=== PATIENT | male | born 1970 | race Caucasian/White ===

== ENCOUNTER 2022-11-02 16:27 | Inpatient (IN) ==
[2022-11-02] MEDS ORDERED: NALOXONE HCL 0.4 MG/1 ML VIAL/CARP IV STA (16:34)
--- NOTE | 2022-11-02 16:36 | Emergency Department Note ---
Impression & Plan Altered mental state ADMIT ED Provider Note HPI: The patient is a 52-year-old male who presents the emergency department via EMS for altered mental status. 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 Patient appeared intoxicated on their assessment and he was noted to have 2 cans of alcoholic beverages in the car with him. Patient failed his field sobriety test and became increasingly less responsive during the testing according to police at the bedside. EMS was therefore contacted and the patient was brought to the ED. Patient was given intranasal Narcan in the field without much response. On arrival here to the ED the patient is alert to painful stimuli with verbal response, he is maintaining oxygen saturation at 93% on 2 L nasal cannula oxygen. ROS: - Per HPI *Outpatient medications and allergy history reviewed. *Pertinent external medical records reviewed. 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 He seemed to be intoxicated in the field, became increasingly lethargic and EMS was contacted. On arrival here to the ED the patient does smell of alcohol, he is responsive to painful stimuli. He is coughed several times, he is stable on nasal cannula oxygen, he did have a desaturation off nasal cannula oxygen which I suspect was secondary to apnea and therefore was placed again. He has otherwise been protecting his airway appropriately without issue therefore patient was not intubated on arrival. He is otherwise hemodynamically stable. Patient did not respond to Narcan in the field, he was given 1 dose IV here in the ED and did not have much response. Per police report patient was noted to have multiple alcoholic beverages in his vehicle and also several bottles of prescription medications including reportedly Klonopin and Ativan. I suspect this might also be playing a role in his lethargy and overall altered mental state. CT imaging of the head was obtained that showed evidence of possible old lacunar infarct but no evidence of any intracranial bleeding or other abnormality that would cause his symptoms. Have low concern that this possible lacunar infarct would cause his altered mental state to this degree. Alcohol level is elevated at 158. Suspect given his mild elevation that likely there are other substances on board causing his altered mental status. I suspect at this time patient will require admission for observation and to metabolize alcohol and other substances to reassess his mentation. I did discuss the case with the on-call [facility] hospitalist service, Dr. Carney, and patient was placed for admission in stable condition for further care. In regards to CT imaging finding, I feel at this time the patient is stable for inpatient MRI to determine acuity of possible lacunar infarct but I do not think this is the source of his altered mentation. Critical care time: 35-minutes -Stabilization of hypoxia with oxygen saturations less than 90% on room air requiring supplemental oxygen for correction, time spent at the bedside management of altered mental status, discussion with other healthcare providers and arrangement of admission Consultants: Hospitalist service, [facility] Diagnosis: 1. Altered mental status, acute 2. Alcohol intoxication, acute 3. Hypoxia, acute 4. Low-attenuation focus on CT imaging of the head, nonspecific Disposition: Admission Mark Matthew DO Emergency Medicine Past Med/Surg History Medical History Depression Family history unobtainable HTN (hypertension) Mood disorder Pain Surgical History Surgical history unknown Family History Other Family history unobtainable Social History Smoking Status: Unknown if ever smoked Feels Safe at Home: Yes Allergies Allergies Allergy/AdvReac Type Severity Reaction Status Date / Time Unable to Assess Allergy Unverified 11/02/22 17:07 Home Meds Home Medications Medication Instructions Recorded Confirmed acamprosate 333 mg tablet,delayed 666 mg PO TID 11/02/22 11/02/22 release amlodipine 10 mg tablet 10 mg PO DAILY 11/02/22 11/02/22 bupropion HCl 150 mg 24 hr tablet, 150 mg PO QAM 11/02/22 11/02/22 extended release carvedilol 25 mg tablet 25 mg PO BID 11/02/22 11/02/22 clonidine HCl 0.1 mg tablet 0.1 mg PO TID PRN BP > 140/90 11/02/22 11/02/22 duloxetine 30 mg capsule,delayed 30 mg PO DAILY 11/02/22 11/02/22 release duloxetine 60 mg capsule,delayed 60 mg PO DAILY 11/02/22 11/02/22 release gabapentin 400 mg capsule 400 mg PO TID 11/02/22 11/02/22 hydrochlorothiazide 25 mg tablet 25 mg PO DAILY 11/02/22 11/02/22 naltrexone 50 mg tablet 50 mg PO DAILY PRN breakthrough 11/02/22 11/02/22 craving nicotine 14 mg/24 hr daily 1 patch transdermal DAILY 11/02/22 11/02/22 transdermal patch pantoprazole 40 mg tablet,delayed 40 mg PO QAM 11/02/22 11/02/22 release quetiapine 100 mg tablet 100 mg PO TID PRN as directed 11/02/22 11/02/22 tramadol 50 mg tablet 50 mg PO Q8H PRN Pain 11/02/22 11/02/22 Results & Data (ED) Vital Signs Vital Signs - 24 hr 11/02/22 16:33 11/02/22 16:33 11/02/22 16:45 Temperature 36.7 C Temperature Source Oral Pulse Rate 83 88 78 Pulse Rate [Finger] Pulse Rate from SpO2 Sensor 89 78 Pulse Rhythm [Finger] Pulse Strength [Finger] Respiratory Rate 27 H 17 15 Respiratory Effort / Characteristics Non-Labored Respiratory Depth Normal Respiratory Pattern Regular Blood Pressure 142/109 H Blood Pressure [Right Arm] Blood Pressure Mean 120 Blood Pressure Mean [Right Arm] Blood Pressure Position Lying Blood Pressure Position [Right Arm] Pulse Oximetry 92 92 94 Oxygen Delivery Method Room Air Oxygen Flow Rate Sepsis New/Unexplained Change in Mental Status N/A Sepsis Action Taken by Nursing No Action Required Oxygen Flow Rate - Titration Pulse Oximetry Post Tiitration 11/02/22 16:58 11/02/22 16:58 11/02/22 17:08 Temperature Temperature Source Pulse Rate 79 79 Pulse Rate [Finger] Pulse Rate from SpO2 Sensor 80 79 Pulse Rhythm [Finger] Pulse Strength [Finger] Respiratory Rate 17 33 H Respiratory Effort / Characteristics Respiratory Depth Respiratory Pattern Blood Pressure 152/105 H Blood Pressure [Right Arm] Blood Pressure Mean 120 Blood Pressure Mean [Right Arm] Blood Pressure Position Blood Pressure Position [Right Arm] Pulse Oximetry 97 99 Oxygen Delivery Method Oxygen Flow Rate Sepsis New/Unexplained Change in Mental Status Sepsis Action Taken by Nursing Oxygen Flow Rate - Titration Pulse Oximetry Post Tiitration 11/02/22 17:11 11/02/22 17:11 11/02/22 17:15 Temperature Temperature Source Pulse Rate 78 Pulse Rate [Finger] Pulse Rate from SpO2 Sensor 78 Pulse Rhythm [Finger] Pulse Strength [Finger] Respiratory Rate 19 Respiratory Effort / Characteristics Respiratory Depth Respiratory Pattern Blood Pressure 146/111 H 156/109 H Blood Pressure [Right Arm] Blood Pressure Mean 122 124 Blood Pressure Mean [Right Arm] Blood Pressure Position Blood Pressure Position [Right Arm] Pulse Oximetry 96 Oxygen Delivery Method Oxygen Flow Rate Sepsis New/Unexplained Change in Mental Status Sepsis Action Taken by Nursing Oxygen Flow Rate - Titration Pulse Oximetry Post Tiitration 11/02/22 17:15 11/02/22 18:19 11/02/22 17:30 Temperature Temperature Source Pulse Rate 78 Pulse Rate [Finger] Pulse Rate from SpO2 Sensor 78 Pulse Rhythm [Finger] Pulse Strength [Finger] Respiratory Rate 14 Respiratory Effort / Characteristics Respiratory Depth Respiratory Pattern Blood Pressure 146/114 H Blood Pressure [Right Arm] Blood Pressure Mean 124 Blood Pressure Mean [Right Arm] Blood Pressure Position Blood Pressure Position [Right Arm] Pulse Oximetry 94 78 L Oxygen Delivery Method Room Air Nasal Cannula Oxygen Flow Rate 0 Sepsis New/Unexplained Change in Mental Status Sepsis Action Taken by Nursing Oxygen Flow Rate - Titration 4 Pulse Oximetry Post Tiitration 96 11/02/22 17:30 11/02/22 17:45 11/02/22 17:45 Temperature Temperature Source Pulse Rate 81 77 Pulse Rate [Finger] Pulse Rate from SpO2 Sensor 81 77 Pulse Rhythm [Finger] Pulse Strength [Finger] Respiratory Rate 14 24 Respiratory Effort / Characteristics Respiratory Depth Respiratory Pattern Blood Pressure 129/101 H Blood Pressure [Right Arm] Blood Pressure Mean 110 Blood Pressure Mean [Right Arm] Blood Pressure Position Blood Pressure Position [Right Arm] Pulse Oximetry 92 91 Oxygen Delivery Method Room Air Room Air Oxygen Flow Rate Sepsis New/Unexplained Change in Mental Status Sepsis Action Taken by Nursing Oxygen Flow Rate - Titration Pulse Oximetry Post Tiitration 11/02/22 18:00 11/02/22 18:00 11/02/22 18:15 Temperature Temperature Source Pulse Rate 78 Pulse Rate [Finger] Pulse Rate from SpO2 Sensor 78 Pulse Rhythm [Finger] Pulse Strength [Finger] Respiratory Rate 13 Respiratory Effort / Characteristics Respiratory Depth Respiratory Pattern Blood Pressure 121/93 116/88 Blood Pressure [Right Arm] Blood Pressure Mean 102 97 Blood Pressure Mean [Right Arm] Blood Pressure Position Blood Pressure Position [Right Arm] Pulse Oximetry 91 Oxygen Delivery Method Room Air Oxygen Flow Rate Sepsis New/Unexplained Change in Mental Status Sepsis Action Taken by Nursing Oxygen Flow Rate - Titration Pulse Oximetry Post Tiitration 11/02/22 18:15 11/02/22 19:33 11/02/22 18:30 Temperature Temperature Source Pulse Rate 76 77 Pulse Rate [Finger] 71 Pulse Rate from SpO2 Sensor 76 77 Pulse Rhythm [Finger] Regular Pulse Strength [Finger] Normal Respiratory Rate 11 L 18 18 Respiratory Effort / Characteristics Non-Labored Spontaneous Respiratory Depth Normal Respiratory Pattern Blood Pressure 126/98 Blood Pressure [Right Arm] 122/99 Blood Pressure Mean 107 Blood Pressure Mean [Right Arm] 106 Blood Pressure Position Blood Pressure Position [Right Arm] Lying Pulse Oximetry 91 97 98 Oxygen Delivery Method Room Air Nasal Cannula Nasal Cannula Oxygen Flow Rate 23 Sepsis New/Unexplained Change in Mental Status Sepsis Action Taken by Nursing Oxygen Flow Rate - Titration Pulse Oximetry Post Tiitration 11/02/22 18:45 11/02/22 19:00 11/02/22 19:15 Temperature Temperature Source Pulse Rate 78 83 77 Pulse Rate [Finger] Pulse Rate from SpO2 Sensor 77 82 77 Pulse Rhythm [Finger] Pulse Strength [Finger] Respiratory Rate 16 15 18 Respiratory Effort / Characteristics Respiratory Depth Respiratory Pattern Blood Pressure 136/102 H 165/116 H 128/108 H Blood Pressure [Right Arm] Blood Pressure Mean 113 132 114 Blood Pressure Mean [Right Arm] Blood Pressure Position Blood Pressure Position [Right Arm] Pulse Oximetry 98 100 99 Oxygen Delivery Method Nasal Cannula Nasal Cannula Nasal Cannula Oxygen Flow Rate 4 4 Sepsis New/Unexplained Change in Mental Status Sepsis Action Taken by Nursing Oxygen Flow Rate - Titration Pulse Oximetry Post Tiitration 11/02/22 19:30 11/02/22 19:45 Temperature Temperature Source Pulse Rate 75 73 Pulse Rate [Finger] Pulse Rate from SpO2 Sensor 74 73 Pulse Rhythm [Finger] Pulse Strength [Finger] Respiratory Rate 20 23 Respiratory Effort / Characteristics Respiratory Depth Respiratory Pattern Blood Pressure 122/99 114/95 Blood Pressure [Right Arm] Blood Pressure Mean 106 101 Blood Pressure Mean [Right Arm] Blood Pressure Position Blood Pressure Position [Right Arm] Pulse Oximetry 97 97 Oxygen Delivery Method Nasal Cannula Nasal Cannula Oxygen Flow Rate 2 2 Sepsis New/Unexplained Change in Mental Status Sepsis Action Taken by Nursing Oxygen Flow Rate - Titration Pulse Oximetry Post Tiitration Laboratory Data 11/02/22 16:40 11/02/22 16:40 Lab Results 11/02/22 11/02/22 11/02/22 Range/Units 16:40 16:40 16:40 WBC 6.98 (4.8-10.8) K/ul RBC 5.08 (4.70-6.10) M/uL Hgb 14.9 (14.0-18.0) g/dl Hct 43.9 (42.0-52.0) % MCV 86.4 (80.0-100.0) fL MCH 29.3 (25.0-34.0) pg MCHC 33.9 (32.0-36.0) g/dL RDW Std Deviation 44.3 (36.4-46.3) fL RDW Coeff of Matheus 14.0 (11.5-14.5) % Plt Count 235 (130-400) K/uL MPV 8.5 L (9.4-12.4) fL Immature Gran % (Auto) 0.3 % Neut % (Auto) 51.1 % Lymph % (Auto) 33.2 % [place] % (Auto) 8.0 % Eos % (Auto) 6.0 % Baso % (Auto) 1.4 % Neut # (Auto) 3.56 (1.40-6.50) K/uL Lymph # (Auto) 2.32 (1.2-3.4) K/uL [place] # (Auto) 0.56 (0.11-0.59) K/uL Eos # (Auto) 0.42 (0-0.50) K/uL Baso # (Auto) 0.10 (0-0.2) K/uL Immature Gran # (Auto) 0.02 (0.01-0.20) K/uL Sodium 143 (136-145) mmol/L Potassium 3.6 (3.5-5.1) mmol/L Chloride 108 H (98-107) mmol/L Carbon Dioxide 28 (21-32) mmol/L Anion Gap 7 (3-11) BUN 9 (6-23) mg/dl Creatinine 1.12 (0.6-1.4) mg/dl Est Cr Clr Drug Dosing Not Reportable Est GFR ( Amer) 87.7 ml/min Est GFR (Non-Af Amer) 75.7 ml/min BUN/Creatinine Ratio 8.0 L (10-20) Glucose 103 H (70-99(Fasting)) mg/dl Calcium 9.9 (8.5-10.1) mg/dl Total Bilirubin 0.3 (0.2-1.0) mg/dl AST 20 (13-39) U/L ALT 24 (7-52) U/L Alkaline Phosphatase 88 (34-104) U/L Total Protein 7.5 (6.0-8.3) gm/dl Albumin 4.3 (3.4-5.0) gm/dl Globulin 3.2 (2.5-4.0) gm/dl Albumin/Globulin Ratio 1.3 (0.9-2) TSH 1.627 (0.300-4.500) uIu/ml Urine Color Urine Appearance (Clear) Urine pH (4.5-7.5) Ur Specific Steele (1.000-1.030) Urine Protein (Negative) Urine Glucose (UA) (Negative) Urine Ketones (Negative) Urine Blood (Negative) Urine Nitrite (Negative) Urine Bilirubin (Negative) Urine Urobilinogen (Negative) Ur Leukocyte Esterase (Negative) Salicylates (3.0-30) mg/dl Urine Opiates Screen (Neg) Ur Methadone, Qual (Neg) Acetaminophen (10-30) ug/ml Urine Barbiturates (Neg) Ur Phencyclidine (PCP) (Neg) U Amphetamin/Meth Scrn (Neg) MDMA (Ecstasy) Screen (Neg) U Benzodiazepines Scrn (Neg) Ur Cocaine Metabolite (Neg) U Marijuana (THC) Screen (Neg) Ethyl Alcohol mg/dL (<10.0) mg/dl SARS-CoV-2, RNA, NAAT (NEGATIVE) 11/02/22 11/02/22 11/02/22 Range/Units 16:40 16:40 17:18 WBC (4.8-10.8) K/ul RBC (4.70-6.10) M/uL Hgb (14.0-18.0) g/dl Hct (42.0-52.0) % MCV (80.0-100.0) fL MCH (25.0-34.0) pg MCHC (32.0-36.0) g/dL RDW Std Deviation (36.4-46.3) fL RDW Coeff of Matheus (11.5-14.5) % Plt Count (130-400) K/uL MPV (9.4-12.4) fL Immature Gran % (Auto) % Neut % (Auto) % Lymph % (Auto) % [place] % (Auto) % Eos % (Auto) % Baso % (Auto) % Neut # (Auto) (1.40-6.50) K/uL Lymph # (Auto) (1.2-3.4) K/uL [place] # (Auto) (0.11-0.59) K/uL Eos # (Auto) (0-0.50) K/uL Baso # (Auto) (0-0.2) K/uL Immature Gran # (Auto) (0.01-0.20) K/uL Sodium (136-145) mmol/L Potassium (3.5-5.1) mmol/L Chloride (98-107) mmol/L Carbon Dioxide (21-32) mmol/L Anion Gap (3-11) BUN (6-23) mg/dl Creatinine (0.6-1.4) mg/dl Est Cr Clr Drug Dosing Est GFR ( Amer) ml/min Est GFR (Non-Af Amer) ml/min BUN/Creatinine Ratio (10-20) Glucose (70-99(Fasting)) mg/dl Calcium (8.5-10.1) mg/dl Total Bilirubin (0.2-1.0) mg/dl AST (13-39) U/L ALT (7-52) U/L Alkaline Phosphatase (34-104) U/L Total Protein (6.0-8.3) gm/dl Albumin (3.4-5.0) gm/dl Globulin (2.5-4.0) gm/dl Albumin/Globulin Ratio (0.9-2) TSH (0.300-4.500) uIu/ml Urine Color Urine Appearance (Clear) Urine pH (4.5-7.5) Ur Specific Steele (1.000-1.030) Urine Protein (Negative) Urine Glucose (UA) (Negative) Urine Ketones (Negative) Urine Blood (Negative) Urine Nitrite (Negative) Urine Bilirubin (Negative) Urine Urobilinogen (Negative) Ur Leukocyte Esterase (Negative) Salicylates < 3.0 L (3.0-30) mg/dl Urine Opiates Screen (Neg) Ur Methadone, Qual (Neg) Acetaminophen < 3 L (10-30) ug/ml Urine Barbiturates (Neg) Ur Phencyclidine (PCP) (Neg) U Amphetamin/Meth Scrn (Neg) MDMA (Ecstasy) Screen (Neg) U Benzodiazepines Scrn (Neg) Ur Cocaine Metabolite (Neg) U Marijuana (THC) Screen (Neg) Ethyl Alcohol mg/dL 158.6 H (<10.0) mg/dl SARS-CoV-2, RNA, NAAT NEGATIVE (NEGATIVE) 11/02/22 11/02/22 Range/Units 17:23 17:23 WBC (4.8-10.8) K/ul RBC (4.70-6.10) M/uL Hgb (14.0-18.0) g/dl Hct (42.0-52.0) % MCV (80.0-100.0) fL MCH (25.0-34.0) pg MCHC (32.0-36.0) g/dL RDW Std Deviation (36.4-46.3) fL RDW Coeff of Matheus (11.5-14.5) % Plt Count (130-400) K/uL MPV (9.4-12.4) fL Immature Gran % (Auto) % Neut % (Auto) % Lymph % (Auto) % [place] % (Auto) % Eos % (Auto) % Baso % (Auto) % Neut # (Auto) (1.40-6.50) K/uL Lymph # (Auto) (1.2-3.4) K/uL [place] # (Auto) (0.11-0.59) K/uL Eos # (Auto) (0-0.50) K/uL Baso # (Auto) (0-0.2) K/uL Immature Gran # (Auto) (0.01-0.20) K/uL Sodium (136-145) mmol/L Potassium (3.5-5.1) mmol/L Chloride (98-107) mmol/L Carbon Dioxide (21-32) mmol/L Anion Gap (3-11) BUN (6-23) mg/dl Creatinine (0.6-1.4) mg/dl Est Cr Clr Drug Dosing Est GFR ( Amer) ml/min Est GFR (Non-Af Amer) ml/min BUN/Creatinine Ratio (10-20) Glucose (70-99(Fasting)) mg/dl Calcium (8.5-10.1) mg/dl Total Bilirubin (0.2-1.0) mg/dl AST (13-39) U/L ALT (7-52) U/L Alkaline Phosphatase (34-104) U/L Total Protein (6.0-8.3) gm/dl Albumin (3.4-5.0) gm/dl Globulin (2.5-4.0) gm/dl Albumin/Globulin Ratio (0.9-2) TSH (0.300-4.500) uIu/ml Urine Color Yellow Urine Appearance Clear (Clear) Urine pH 7.5 (4.5-7.5) Ur Specific [place] 1.005 (1.000-1.030) Urine Protein Negative (Negative) Urine Glucose (UA) Negative (Negative) Urine Ketones Negative (Negative) Urine Blood Negative (Negative) Urine Nitrite Negative (Negative) Urine Bilirubin Negative (Negative) Urine Urobilinogen Negative (Negative) Ur Leukocyte Esterase Negative (Negative) Salicylates (3.0-30) mg/dl Urine Opiates Screen Neg (Neg) Ur Methadone, Qual Neg (Neg) Acetaminophen (10-30) ug/ml Urine Barbiturates Neg (Neg) Ur Phencyclidine (PCP) Neg (Neg) U Amphetamin/Meth Scrn Neg (Neg) MDMA (Ecstasy) Screen Neg (Neg) U Benzodiazepines Scrn Neg (Neg) Ur Cocaine Metabolite Neg (Neg) U Marijuana (THC) Screen Neg (Neg) Ethyl Alcohol mg/dL (<10.0) mg/dl SARS-CoV-2, RNA, NAAT (NEGATIVE) Administered Medications Discontinued Medications Sodium Chloride (Nss 1000ml) 1,000 mls @ 999 mls/hr IV .[id number] RUY Stop: 11/02/22 17:45 Last Infusion: 11/02/22 18:21 Dose: 0 mls/hr Documented By: Admin: 11/02/22 16:45 Dose: 999 mls/hr Documented By: DANNY Naloxone HCl (Naloxone Hcl 0.4 Mg/1 Ml Vial/Carp) 1 mg IV NOW STA Stop: 11/02/22 16:35 Last Admin: 11/02/22 17:01 Dose: 1 mg Documented By: DANNY Imaging Data Radiologist's Impression: Head CT 11/02/22 16:33 CT SCAN OF THE BRAIN WITHOUT IV CONTRAST CLINICAL HISTORY: Change in mental status. COMPARISON STUDY: No priors. TECHNIQUE: Unenhanced axial CT scan of the brain is performed from the vertex to the skull base. A dose lowering technique was utilized adhering to the principl es of BASIM. CT DOSE: 691.05 mGy.cm FINDINGS: Brain parenchyma: There is a 12 mm low attenuation focus in the left internal capsule seen on image #18. There is age-related involutional change noting mild subcortical and periventricular microangiopathic disease. There is no hemorrhage, mass effect, or evidence of acute territorial ischemia by CT criteria. Jones-white matter differentiation is preserved. No extra-axial fluid collection is seen. Ventricles, sulci, cisterns: Prominent secondary to involutional change. Intracranial vasculature: There is atherosclerotic calcification of the cavernous carotid arteries. Calvarium: Unremarkable. Sinuses and mastoids: There is mild/moderate mucosal thickening within the maxillary antra and the ethmoid sinuses. Mild mucosal thickening is noted in the frontal sinuses. The mastoid air cells are well pneumatized. Orbits: The bony orbits are grossly intact. IMPRESSION: 1 There is no hemorrhage, mass effect, or evidence of acute territorial ischemia by CT criteria. 2. There is a 12 mm low-attenuation focus centered in the left internal capsule. This could represent chronic change versus a subacute lacunar infarct. MRI could be considered for further assessment. ACT 112: Negative or not required by law. Electronically signed by: Ranjit Asif M.D. 11/02/2022 5:10 PM Chest X-Ray 11/02/22 16:34 SUPINE PORTABLE AP CHEST RADIOGRAPH CLINICAL HISTORY: Altered mental status. COMPARISON STUDY: No previous studies for comparison. FINDINGS: Mediastinal widening is likely due to supine technique. Low lung volumes are also likely related to supine technique. Linear left basilar opacity represents atelectasis. No consolidation is present. There is no evidence for pulmonary edema. Cardiac size is within normal limits. No pneumothorax is identified on supine exam. IMPRESSION: 1. No acute cardiopulmonary findings. 2. Mediastinal widening, likely due to supine technique. ACT 112: Negative or not required by law. Electronically signed by: Jimenez Solorzano M.D. 11/02/2022 5:25 PM Discharge Plan Visit Data Chief Complaint: Unresponsive ED Provider: Mark Matthew Discharge Problem: Altered mental state Forms Stand Alone Forms: My [facility] Prescriptions Prescriptions: No Action amlodipine 10 mg Tablet 10 mg PO DAILY bupropion HCl 150 mg Tablet Extended Release 24 Hr 150 mg PO QAM duloxetine 30 mg Capsule,Delayed Release(Dr/Ec) 30 mg PO DAILY duloxetine 60 mg Capsule,Delayed Release(Dr/Ec) 60 mg PO DAILY gabapentin 400 mg Capsule 400 mg PO TID pantoprazole 40 mg Tablet,Delayed Release (Dr/Ec) 40 mg PO QAM hydrochlorothiazide 25 mg Tablet 25 mg PO DAILY tramadol 50 mg Tablet 50 mg PO Q8H PRN (Reason: Pain) carvedilol 25 mg Tablet 25 mg PO BID Rx Instructions: must administer with a meal/food clonidine HCl 0.1 mg Tablet 0.1 mg PO TID PRN (Reason: BP > 140/90) quetiapine 100 mg Tablet 100 mg PO TID PRN (Reason: as directed) acamprosate [Campral] 333 mg Tablet,Delayed Release (Dr/Ec) 666 mg PO TID Rx Instructions: 2 tablet dose naltrexone 50 mg Tablet 50 mg PO DAILY PRN (Reason: breakthrough craving) nicotine 14 mg/24 hr Patch 24 Hour 1 patch TRANSDERMAL DAILY Referrals Referrals: PCP,NO [Primary Care Provider] - : Altered mental state Qualifiers: Altered mental status type: unspecified Qualified Code(s): R41.82 - Altered mental status, unspecified
[2022-11-02] MEDS ORDERED: SODIUM CHLORIDE 0.9% 1000ML 1,000 ML IV SCH (16:45)
--- NOTE | 2022-11-02 17:12 | CT Scan Report ---
CT SCAN OF THE BRAIN WITHOUT IV CONTRAST CLINICAL HISTORY: Change in mental status. COMPARISON STUDY: No priors. TECHNIQUE: Unenhanced axial CT scan of the brain is performed from the vertex to the skull base. A do se lowering technique was utilized adhering to the principles of ALARA. CT DOSE: 691.05 mGy.cm FINDINGS: Brain parenchyma: There is a 12 mm low attenuation focus in the left internal capsule seen on image # 18. There is age-related involutional change noting mild subcortical and periventricular microangiopa thic disease. There is no hemorrhage, mass effect, or evidence of acute territorial ischemia by CT cr iteria. Jones-white matter differentiation is preserved. No extra-axial fluid collection is seen. Ventricles, sulci, cisterns: Prominent secondary to involutional change. Intracranial vasculature: There is atherosclerotic calcification of the cavernous carotid arteries. Calvarium: Unremarkable. Sinuses and mastoids: There is mild/moderate mucosal thickening within the maxillary antra and the et hmoid sinuses. Mild mucosal thickening is noted in the frontal sinuses. The mastoid air cells are wel l pneumatized. Orbits: The bony orbits are grossly intact. IMPRESSION: 1 There is no hemorrhage, mass effect, or evidence of acute territorial ischemia by CT criteria. 2. There is a 12 mm low-attenuation focus centered in the left internal capsule. This could represent chronic change versus a subacute lacunar infarct. MRI could be considered for further assessment. ACT 112: Negative or not required by law. Electronically signed by: Ranjit Asif M.D. 11/02/2022 5:10 PM
[2022-11-02 17:13] LABS: Basophils % (auto) 1.4 %; Eosinophils # (auto) 0.42 K/uL (0-0.50); Hematocrit (blood only) 43.9 % (42.0-52.0); Hemoglobin 14.9 g/dl (14.0-18.0); Immature Granulocytes # (auto) 0.02 K/uL (0.01-0.20); Immature Granulocytes % (auto) 0.3 %; Lymphocytes # (auto) 2.32 K/uL (1.2-3.4); Lymphocytes % (auto) 33.2 %; Mean Corpuscular Hemoglobin 29.3 pg (25.0-34.0); Mean Corpuscular Hgb Conc 33.9 g/dL (32.0-36.0); Mean Corpuscular Volume 86.4 fL (80.0-100.0); Mean Platelet Volume 8.5 fL (9.4-12.4); Monocytes # (auto) 0.56 K/uL (0.11-0.59); Neutrophils # (auto) 3.56 K/uL (1.40-6.50); Neutrophils % (auto) 51.1 %; Platelet Count 235 K/uL (130-400); RDW Standard Deviation 44.3 fL (36.4-46.3); Red Blood Count 5.08 M/uL (4.70-6.10); White Blood Count 6.98 K/ul (4.8-10.8)
[2022-11-02 17:14] LABS: Alanine Aminotransferase 24 U/L (7-52); Albumin Globulin Ratio 1.3 (0.9-2); Albumin Level 4.3 gm/dl (3.4-5.0); Alkaline Phosphatase 88 U/L (34-104); Anion Gap 7 (3-11); Aspartate Aminotransferase 20 U/L (13-39); Bilirubin,Total 0.3 mg/dl (0.2-1.0); Blood Urea Nitrogen 9 mg/dl (6-23); Calcium 9.9 mg/dl (8.5-10.1); Carbon Dioxide 28 mmol/L (21-32); Chloride 108 mmol/L (98-107); Est GFR (African American) 87.7 ml/min; Est GFR (Non-African American) 75.7 ml/min; Globulin 3.2 gm/dl (2.5-4.0); Glucose 103 mg/dl (70-99(Fasting)); Potassium 3.6 mmol/L (3.5-5.1); Sodium 143 mmol/L (136-145); Total Protein 7.5 gm/dl (6.0-8.3)
[2022-11-02 17:16] LABS: Acetaminophen < 3 ug/ml (10-30); Salicylate < 3.0 mg/dl (3.0-30)
--- NOTE | 2022-11-02 17:26 | XRay Report ---
SUPINE PORTABLE AP CHEST RADIOGRAPH CLINICAL HISTORY: Altered mental status. COMPARISON STUDY: No previous studies for comparison. FINDINGS: Mediastinal widening is likely due to supine technique. Low lung volumes are also likely re lated to supine technique. Linear left basilar opacity represents atelectasis. No consolidation is pr esent. There is no evidence for pulmonary edema. Cardiac size is within normal limits. No pneumothora x is identified on supine exam. IMPRESSION: 1. No acute cardiopulmonary findings. 2. Mediastinal widening, likely due to supine technique. ACT 112: Negative or not required by law. Electronically signed by: Jimenez Solorzano M.D. 11/02/2022 5:25 PM
[2022-11-02 17:53] LABS: Appearance Urine Clear (Clear); Bilirubin Urine Negative (Negative); Blood Urine Negative (Negative); Color Urine Yellow; Glucose Urine UA Negative (Negative); Ketones Urine Negative (Negative); Leukocyte Esterase Urine Negative (Negative); Nitrite Urine Negative (Negative); Protein Urine Negative (Negative); Specific Gravity Urine 1.005 (1.000-1.030); Urobilinogen Urine Negative (Negative); pH Urine 7.5 (4.5-7.5)
--- NOTE | 2022-11-02 18:09 | History & Physical Report ---
Date of Service November 02, 2022 Assessment & Plan (1) Intoxication: Plan: Alcohol level present and appears to have take benzodiazepines given the bottle of this in his belongings which doesn't have his name on it. 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 Multiple medications present in his possession which may contribute to polypharmacy and have the potential to cause decreased reflexes and perception while driving including but not limited to seroquel 300mg daily, high dose gabapentin, bupropion, duloxetine and tramadol. Hold these for tonight until he becomes more awake. AWSS scale ordered in case of withdrawal. He notably takes acamprosate which is a ILAN agonist ordered to treat alcoholism, and he also has naltrexone with him to use PRN. Cont supportive care with oxygen and hold all meds, strict NPO for now. Monitor on telemetry. (2) Pain: Plan: Evidence of chronic pain given his medications, however, he is currently o btunded and there is no report of pain. (3) Mood disorder: Plan: Holding quietapine, Duloxetine, bupropion, tramadol and gabapentin at this time. (4) HTN (hypertension): Plan: chronic, controlled. Hold HCTZ, carvedilol. (5) Depression: Plan: plan as above. (6) Alcoholism: Plan: Intoxicated on arrival. UDS is pending. AWSS scale PRN Lovenox Full Code Dispo-pending clinical improvement. He is from [place], [place] and drives a truck. Serious consideration to putting a hold on his driving abilities should be considered/notification to the [facility]. 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 He appeared to be intoxicated and was noted to have alcoholic beverages open in the car with him. He failed his field sobriety test and became increasingly less responsive according to police. EMS was contacted and he was brought to the ER. He was given intranasal Narcan in the field without much response. On arrival to the ER he is alert to painful stimuli with verbal response and is maintaining oxygen saturation of 93% on 2 L nasal cannula. He was found to have bottles of Klonopin and Ativan and other peoples names on his car and he suspected to have taken benzodiazepines in addition to alcohol. Alcohol level is elevated. There are no prior records indicate past medical history, however, there were medication bottles in his car with his name on them. These suggest a history of hypertension, depression/anxiety, possibly some element of chronic pain and mood disorder. Allergies Allergy/AdvReac Type Severity Reaction Status Date / Time Unable to Assess Allergy Unverified 11/02/22 17:07 Home Medications Medication Instructions Recorded Confirmed Type acamprosate 333 mg tablet,delayed 666 mg PO TID 11/02/22 11/02/22 History release amlodipine 10 mg tablet 10 mg PO DAILY 11/02/22 11/02/22 History bupropion HCl 150 mg 24 hr tablet, 150 mg PO QAM 11/02/22 11/02/22 History extended release carvedilol 25 mg tablet 25 mg PO BID 11/02/22 11/02/22 History clonidine HCl 0.1 mg tablet 0.1 mg PO TID PRN BP > 140/90 11/02/22 11/02/22 History duloxetine 30 mg capsule,delayed 30 mg PO DAILY 11/02/22 11/02/22 History release duloxetine 60 mg capsule,delayed 60 mg PO DAILY 11/02/22 11/02/22 History release gabapentin 400 mg capsule 400 mg PO TID 11/02/22 11/02/22 History hydrochlorothiazide 25 mg tablet 25 mg PO DAILY 11/02/22 11/02/22 History naltrexone 50 mg tablet 50 mg PO DAILY PRN breakthrough 11/02/22 11/02/22 History craving nicotine 14 mg/24 hr daily 1 patch transdermal DAILY 11/02/22 11/02/22 History transdermal patch pantoprazole 40 mg tablet,delayed 40 mg PO QAM 11/02/22 11/02/22 History release quetiapine 100 mg tablet 100 mg PO TID PRN as directed 11/02/22 11/02/22 History tramadol 50 mg tablet 50 mg PO Q8H PRN Pain 11/02/22 11/02/22 History Past Med/Surg History Medical History Depression Family history unobtainable HTN (hypertension) Mood disorder Pain Surgical History Surgical history unknown Family History Other Family history unobtainable Social History Smoking Status: Unknown if ever smoked Feels Safe at Home: Yes Review of Systems Review of Systems: The patient is obtunded and unable to provide ROS. Physical Exam Physical Exam: CONSTITUTIONAL: WNWD, vitals as above, obtunded. Awakens to physical and verbal stimulus. When asked questions he tries to answer but falls asleep frequently. He is oriented to name. EYES: PERRL, normal conjunctivae, no scleral icterus ENT: external ear and nose normal NECK: trachea midline RESPIRATORY: clear to auscultation bilaterally, no crackles, rales or wheezes, normal respiratory effort CARDIOVASCULAR: regular rate and rhythm, S1 and 2 heard without murmurs, gallops or rubs, no JVD, no peripheral edema CHEST: inspection of chest was normal GASTROINTESTINAL: soft, nontender, ND, some guarding present -crouch catheter placed. MUSCULOSKELETAL: strength 5/5 throughout, head is normocephalic and atraumatic SKIN: warm and dry NEUROLOGIC: obtunded, some shivering noted intermittently PSYCHIATRIC: obtunded but can awaken to voice and tell me his correct name. Results & Data Results & Data ([facility]) Vital Signs (Past 12 Hours) Vital Signs Temp Pulse Resp BP Pulse Ox O2 Del Method 11/02/22 17:15 78 14 94 11/02/22 17:15 156/109 H 11/02/22 17:11 146/111 H 11/02/22 17:11 78 19 96 11/02/22 17:08 79 33 H 99 11/02/22 16:58 152/105 H 11/02/22 16:58 79 17 97 11/02/22 16:45 78 15 94 11/02/22 16:33 88 17 92 11/02/22 16:33 36.7 C 83 27 H 142/109 H 92 Room Air Laboratory Results Short CBC 11/02/22 Range/Units 16:40 WBC 6.98 (4.8-10.8) K/ul Hgb 14.9 (14.0-18.0) g/dl Hct 43.9 (42.0-52.0) % Plt Count 235 (130-400) K/uL BMP 11/02/22 16:40 Sodium 143 Potassium 3.6 Chloride 108 H Carbon Dioxide 28 BUN 9 Creatinine 1.12 Glucose 103 H Calcium 9.9 Liver Function 11/02/22 Range/Units 16:40 Total Bilirubin 0.3 (0.2-1.0) mg/dl AST 20 (13-39) U/L ALT 24 (7-52) U/L Alkaline Phosphatase 88 (34-104) U/L Albumin 4.3 (3.4-5.0) gm/dl Urine 11/02/22 Range/Units 17:23 Urine Color Yellow Urine Appearance Clear (Clear) Urine pH 7.5 (4.5-7.5) Ur Specific [place] 1.005 (1.000-1.030) Urine Protein Negative (Negative) Urine Glucose (UA) Negative (Negative) Diagnostic Findings Head CT 11/02/22 16:33 CT SCAN OF THE BRAIN WITHOUT IV CONTRAST CLINICAL HISTORY: Change in mental status. COMPARISON STUDY: No priors. TECHNIQUE: Unenhanced axial CT scan of the brain is performed from the vertex to the skull base. A dose lowering technique was utilized adhering to the principles of ALARA. CT DOSE: 691.05 mGy.cm FINDINGS: Brain parenchyma: There is a 12 mm low attenuation focus in the left internal capsule seen on image #18. There is age-related involutional change noting mild subcortical and periventricular microangiopathic disease. There is no hemorrhage, mass effect, or evidence of acute territorial ischemia by CT criteria. Jones-white matter differentiation is preserved. No extra-axial fluid collection is seen. Ventricles, sulci, cisterns: Prominent secondary to involutional change. Intracranial vasculature: There is atherosclerotic calcification of the cavernous carotid arteries. Calvarium: Unremarkable. Sinuses and mastoids: There is mild/moderate mucosal thickening within the maxillary antra and the ethmoid sinuses. Mild mucosal thickening is noted in the frontal sinuses. The mastoid air cells are well pneumatized. Orbits: The bony orbits are grossly intact. IMPRESSION: 1 There is no hemorrhage, mass effect, or evidence of acute territorial ischemia by CT criteria. 2. There is a 12 mm low-attenuation focus centered in the left internal capsule. This could represent chronic change versus a subacute lacunar infarct. MRI could be considered for further assessment. ACT 112: Negative or not required by law. Electronically signed by: Ranjit Asif M.D. 11/02/2022 5:10 PM Chest X-Ray 11/02/22 16:34 SUPINE PORTABLE AP CHEST RADIOGRAPH CLINICAL HISTORY: Altered mental status. COMPARISON STUDY: No previous studies for comparison. FINDINGS: Mediastinal widening is likely due to supine technique. Low lung volumes are also likely related to supine technique. Linear left basilar opacity represents atelectasis. No consolidation is present. There is no evidence for pulmonary edema. Cardiac size is within normal limits. No pneumothorax is identified on supine exam. IMPRESSION: 1. No acute cardiopulmonary findings. 2. Mediastinal widening, likely due to supine technique. ACT 112: Negative or not required by law. Electronically signed by: Jimenez Solorzano M.D. 11/02/2022 5:25 PM Code Status & VTE Plan VTE Prophylaxis Plan VTE Prophylaxis will be ordered: Yes
[2022-11-02 18:41] LABS: Amphetamines+Metham, Urine Neg (Neg); Barbiturates, Urine Neg (Neg); Benzodiazepine, Urine Neg (Neg); Cocaine, Urine Neg (Neg); MDMA (Ecstacy), Urine Neg (Neg); Methadone, Urine Neg (Neg); Opiate, Urine Neg (Neg); Phencyclidine, Urine Neg (Neg)
[2022-11-02] MEDS ORDERED: ACETAMINOPHEN 1,000 MG/100 ML VIAL IV STA (21:05)
[2022-11-02] MEDS ORDERED: LORazepam 2 MG/1 ML VIAL IV PRN (21:14)
[2022-11-02] MEDS ORDERED: MULTI-VITAMIN INFUSION 10 ML, THIAMINE HCL 100 MG, FOLIC ACID 1 MG in SODIUM CHLORIDE 0... IV ONE (21:30)
[2022-11-02] MEDS: LORazepam 2 MG/1 ML VIAL IV PRN (21:38)
[2022-11-02 23:32] LABS: Influenza A virus by PCR Negative (Neg); Influenza B virus by PCR Negative (Neg); RSV by PCR Negative (Neg); SARS CoV2 RNA(COVID-19) Ceph NEGATIVE (Negative)
[2022-11-03] MEDS: SODIUM CHLORIDE 0.45 % 1,000 ML IV SCH ×2 (00:36→10:57)
[2022-11-03 05:17] LABS: BUN Creatinine Ratio 8.1 (10-20); Creatinine Clr Calc Pharmacy 95.5 ml/min; Est GFR (African American) 101.8 ml/min; Est GFR (Non-African American) 87.8 ml/min; Magnesium 1.6 mg/dl (1.7-2.4); Potassium 3.7 mmol/L (3.5-5.1)
[2022-11-03 05:25] LABS: Hematocrit (blood only) 41.7 % (42.0-52.0); Hemoglobin 13.8 g/dl (14.0-18.0); Mean Corpuscular Hemoglobin 29.4 pg (25.0-34.0); Mean Corpuscular Hgb Conc 33.1 g/dL (32.0-36.0); Mean Corpuscular Volume 88.9 fL (80.0-100.0); Mean Platelet Volume 8.7 fL (9.4-12.4); Platelet Count 216 K/uL (130-400); RDW Coefficient of Variation 14.1 % (11.5-14.5); RDW Standard Deviation 45.2 fL (36.4-46.3); Red Blood Count 4.69 M/uL (4.70-6.10); White Blood Count 7.42 K/ul (4.8-10.8)
--- NOTE | 2022-11-03 08:11 | Electrocardiogram Report ---
Test Reason : Blood Pressure : / mmHG Vent. Rate : 084 BPM Atrial Rate : 084 BPM P-R Int : 176 ms QRS Dur : 110 ms QT Int : 370 ms P-R-T Axes : 031 011 047 degrees QTc Int : 437 ms Normal sinus rhythm Normal ECG No previous ECGs available Confirmed by Ward Villalba ([id number]) on 11/03/2022 8:11:14 AM Referred By: REFERRED SELF Confirmed By:Ward Villalba
[2022-11-03] MEDS ORDERED: MAGNESIUM SULFATE / D5W 1 GM/100 ML BAG IV ONE (08:18)
[2022-11-03] MEDS: THIAMINE HCL 100 MG in SYRINGE 9 ML IV SCH (09:21)
[2022-11-03] MEDS: FOLIC ACID 1 MG in SYRINGE 9.8 ML IV SCH (09:21)
--- NOTE | 2022-11-03 09:22 | Hospitalist Progress Note ---
Date of Service November 03, 2022 Assessment & Plan (1) Intoxication: Plan: Alcohol level elevated on presentation --measured at 158 Patient reports drinking a Fifth of Vodka a day. Last drink was yesterday Urine Drug Screen negative for tested substances (of note, patient with a bottle of clonazepam in his possession which he reports belongs to his room mate and got "mixed up" with his medications) (2) Pain: Plan: He is prescribed Tramadol for pain. Would discontinue this medication with his history of seizures (3) Mood disorder: Plan: He is prescribed Quetiapine, Duloxetine, bupropion for depression and anxiety. These medications were held on admission due to his depressed mental status. Will resume at home doses and monitor (4) HTN (hypertension): Plan: On HCTZ, carvedilol, amlodipine and clonidine--will resume at home doses with hold parameters (5) Depression: Plan: (6) Alcoholism: Plan: Will monitor on telemetry on withdrawal protocol Continue Thiamine and Folate supplementation Once he is medically stable, he will be discharged to state police custody. Plan DVT ppx-- SQ lovenox Admission and Anticipated Discharge Date Admission Date: November 02, 2022 Subjective Patient seen and examined in ER He was brought in by [employer] Police yesterday for erratic driving and upon arrival to the Emergency Room, he was lethargic. Currently he is awake, complains of feeling nauseous. Reports he is beginning to feel early alcohol withdrawal symptoms. Review of his medical history--he reports having a history of high blood pressu re, neuropathy and sciatica for which he is prescribed Tramadol, Seizures (he is uncertain if it is a primary seizure disorder or related to his alcohol withdrawal), depression and anxiety. With regards to his alcohol history--he drinks a fifth of vodka a day, last drink was yesterday and he has a history of alcohol withdrawals. Physical Exam Physical Exam: Laying in bed, room is darkened, patient is awake and answers questions appropriately, appears disheveled Respiratory: Breathing comfortably on room air, no wheezing/rhonchi/rales Cardiovascular: Regular rate and rhythm, no murmurs/rubs/gallops Gastrointestinal (Abdomen): soft, non tender Musculoskeletal: No edema Neurologic: awake, alert, spontaneously moving extremities, answering questions appropriately Results & Data Results & Data ([facility]) Vital Signs (Past 12 Hours) Vital Signs Pulse Pulse Pulse Resp BP BP Pulse Ox 11/03/22 08:23 69 18 151/111 H 95 11/03/22 06:00 74 17 96 11/03/22 06:00 143/109 H 11/03/22 05:45 74 18 95 11/03/22 05:30 73 10 L 96 11/03/22 05:15 76 16 95 11/03/22 05:00 88 11 L 97 11/03/22 05:00 153/101 H 11/03/22 04:45 79 14 96 11/03/22 04:30 77 25 H 95 11/03/22 04:15 78 6 L 95 11/03/22 04:00 83 8 L 94 11/03/22 04:00 150/105 H 11/03/22 03:45 80 17 94 11/03/22 03:33 81 17 95 11/03/22 03:33 165/115 H 11/03/22 03:30 83 14 97 11/03/22 03:24 85 17 97 11/03/22 03:24 145/113 H 11/03/22 03:15 82 18 97 11/03/22 03:00 77 10 L 96 11/03/22 02:45 79 18 96 11/03/22 02:30 75 12 95 11/03/22 02:15 74 12 96 11/03/22 02:00 74 11 L 96 11/03/22 01:45 77 10 L 95 11/03/22 01:30 75 20 96 11/03/22 01:15 75 13 96 11/03/22 01:00 75 13 92 11/03/22 00:45 77 12 92 11/03/22 00:30 77 10 L 92 11/03/22 00:15 79 15 91 11/03/22 00:00 77 12 91 11/02/22 23:45 80 15 92 11/02/22 23:30 76 19 96 11/02/22 23:15 81 15 95 11/02/22 23:00 77 12 95 11/02/22 22:45 76 12 96 11/02/22 22:30 77 10 L 96 11/02/22 22:15 78 11 L 96 11/02/22 22:02 73 11 L 97 11/02/22 22:02 132/98 11/02/22 22:00 74 12 96 11/02/22 21:45 76 15 98 11/02/22 21:45 145/109 H 11/02/22 21:30 76 13 97 11/02/22 21:30 164/119 H 11/03/22 06:00 78 18 143/109 H 96 11/03/22 03:35 81 18 165/115 H 95 11/03/22 00:00 11/02/22 23:00 80 16 132/98 94 11/02/22 22:02 78 18 132/98 97 11/02/22 21:31 75 15 96 Pulse Ox O2 Del Method O2 Del Method O2 Flow Rate O2 Flow Rate 11/03/22 08:23 Room Air 11/03/22 06:00 11/03/22 06:00 11/03/22 05:45 11/03/22 05:30 11/03/22 05:15 11/03/22 05:00 11/03/22 05:00 11/03/22 04:45 11/03/22 04:30 11/03/22 04:15 11/03/22 04:00 11/03/22 04:00 11/03/22 03:45 11/03/22 03:33 11/03/22 03:33 11/03/22 03:30 11/03/22 03:24 11/03/22 03:24 11/03/22 03:15 11/03/22 03:00 11/03/22 02:45 11/03/22 02:30 11/03/22 02:15 11/03/22 02:00 11/03/22 01:45 11/03/22 01:30 11/03/22 01:15 11/03/22 01:00 11/03/22 00:45 11/03/22 00:30 11/03/22 00:15 11/03/22 00:00 11/02/22 23:45 11/02/22 23:30 11/02/22 23:15 11/02/22 23:00 11/02/22 22:45 11/02/22 22:30 11/02/22 22:15 11/02/22 22:02 11/02/22 22:02 11/02/22 22:00 11/02/22 21:45 11/02/22 21:45 11/02/22 21:30 11/02/22 21:30 11/03/22 06:00 Nasal Cannula 1 11/03/22 03:35 Nasal Cannula 1 11/03/22 00:00 94 Nasal Cannula 1 11/02/22 23:00 Nasal Cannula 1 11/02/22 22:02 Nasal Cannula 1 11/02/22 21:31 Nasal Cannula 2
[2022-11-03] MEDS ORDERED: NON-FORMULARY MEDICATION (Nicotine 14 mg/24 hr Patch 24 Hour) TD SCH (09:45)
[2022-11-03] MEDS: ONDANSETRON INJ 2 MG/ML 2 ML VIAL IV PRN ×2 (09:48→19:58)
[2022-11-03] MEDS: buPROPion XL 150 MG TABCR PO SCH (10:40)
[2022-11-03] MEDS: amLODIPine BESYLATE 5 MG TAB PO SCH (10:41)
[2022-11-03] MEDS: carvediloL 25 MG TAB PO SCH ×2 (10:42→19:59)
[2022-11-03] MEDS: DULoxetine HCL 30 MG CAP PO SCH (10:43)
[2022-11-03] MEDS: DULoxetine HCL 60 MG CAP PO SCH (10:43)
[2022-11-03] MEDS: hydroCHLOROthiazide 25 MG TAB PO SCH (10:44)
[2022-11-03] MEDS: PANTOprazole 40 MG TAB PO SCH (10:45)
[2022-11-03] MEDS: NICOTINE 14 MG/24 HR PATCH TD SCH (10:46)
[2022-11-03] MEDS: LORazepam 2 MG/1 ML VIAL IV PRN ×2 (10:58→13:19)
[2022-11-03] MEDS: cloNIDine HCL 0.1 MG TAB PO PRN ×2 (13:19→20:15)
[2022-11-03] MEDS: GABAPENTIN 400 MG CAP PO SCH ×2 (13:21→19:59)
[2022-11-03] MEDS ORDERED: Ativan PO Alcohol Withdrawal--Active Protocol PO PRN (16:47)
[2022-11-03] MEDS ORDERED: LORazepam 1 MG TAB PO PRN ×2 (16:47)
[2022-11-03] MEDS: LORazepam 1 MG TAB PO PRN ×2 (16:57→21:31)
[2022-11-03] MEDS: ACETAMINOPHEN 325 MG TAB PO PRN ×2 (16:57→20:11)
[2022-11-04] MEDS: LORazepam 1 MG TAB PO PRN ×5 (02:08→23:57)
[2022-11-04] MEDS: ACETAMINOPHEN 325 MG TAB PO PRN ×3 (06:11→19:53)
[2022-11-04] MEDS: ONDANSETRON INJ 2 MG/ML 2 ML VIAL IV PRN ×2 (06:12→12:30)
[2022-11-04] MEDS: amLODIPine BESYLATE 5 MG TAB PO SCH (08:19)
[2022-11-04] MEDS: THIAMINE HCL 100 MG in SYRINGE 9 ML IV SCH (08:19)
[2022-11-04] MEDS: carvediloL 25 MG TAB PO SCH ×2 (08:19→19:56)
[2022-11-04] MEDS: GABAPENTIN 400 MG CAP PO SCH ×3 (08:19→19:54)
[2022-11-04] MEDS: DULoxetine HCL 60 MG CAP PO SCH (08:19)
[2022-11-04] MEDS: buPROPion XL 150 MG TABCR PO SCH (08:19)
[2022-11-04] MEDS: FOLIC ACID 1 MG in SYRINGE 9.8 ML IV SCH (08:19)
[2022-11-04] MEDS: DULoxetine HCL 30 MG CAP PO SCH (08:19)
[2022-11-04] MEDS: hydroCHLOROthiazide 25 MG TAB PO SCH (08:19)
[2022-11-04] MEDS: PANTOprazole 40 MG TAB PO SCH (08:19)
[2022-11-04 08:27] LABS: BUN Creatinine Ratio 7.8 (10-20); Calcium 9.5 mg/dl (8.5-10.1); Creatinine Clr Calc Pharmacy 84.2 ml/min; Est GFR (African American) 84.9 ml/min; Est GFR (Non-African American) 73.3 ml/min; Magnesium 2.1 mg/dl (1.7-2.4); Phosphorus 2.9 mg/dl (2.5-4.9); Potassium 3.6 mmol/L (3.5-5.1)
[2022-11-04] MEDS: cloNIDine HCL 0.1 MG TAB PO PRN ×3 (08:29→19:53)
--- NOTE | 2022-11-04 08:31 | Electrocardiogram Report ---
Test Reason : Blood Pressure : / mmHG Vent. Rate : 068 BPM Atrial Rate : 068 BPM P-R Int : 176 ms QRS Dur : 110 ms QT Int : 420 ms P-R-T Axes : 031 -07 042 degrees QTc Int : 446 ms Normal sinus rhythm Normal ECG When compared with ECG of 02-NOV-2022 16:38, No significant change was found Confirmed by Ward Villalba ([id number]) on 11/04/2022 8:31:24 AM Referred By: REFERRED SELF Confirmed By:Ward Villalba
[2022-11-04] MEDS: NICOTINE 14 MG/24 HR PATCH TD SCH (08:57)
[2022-11-04] MEDS: POLYETHYLENE (MIRALAX) 17 GM PACK PO PRN (12:35)
--- NOTE | 2022-11-04 15:42 | Hospitalist Progress Note ---
Date of Service November 04, 2022 Assessment & Plan (1) Alcoholism: (2) Intoxication: Plan: Alcohol level elevated on presentation --measured at 158 Patient reports drinking a Fifth of Vodka a day. Last drink was on Wednesday Urine Drug Screen negative for tested substances (of note, patient with a bottle of clonazepam in his possession which he reports belongs to his room mate and got "mixed up" with his medications) Continue Ativan, Librium for alcohol withdrawal protocol Continue folic acid and thiamine Monitor closely for any sign of alcohol DT Once he is medically stable, he will be discharged to state police custody. Counseling on alcohol cessation (3) Altered mental state: Plan: Possible Toxic encephalopathy due to alcohol intoxication and polypharmacy He was pulled over by police for erratic driving. 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 No sign of neuro focal deficit on exam Continue monitor (4) Pain: Plan: He is prescribed Tramadol for pain that was discontinued during this admission due to increase risk of seizures Continue Tylenol prn Will add Lidocaine patch (5) Depression: Plan: (6) Mood disorder: Plan: He is prescribed Quetiapine, Duloxetine, bupropion for depression and anxiety. These medications were held on admission due to his depressed mental status. Continue Duloxetine, Bupropion (7) HTN (hypertension): Plan: Continue HCTZ, carvedilol, amlodipine and clonidine Continue monitor BP Plan DVT ppx-- SQ lovenox Admission and Anticipated Discharge Date Admission Date: November 02, 2022 Subjective Pt was seen and examined for follow up of alcohol intoxication Lying in bed with no acute distress Pt said that he feels very anxious He said that he has history of alcohol withdrawal but never experienced DT Denies any hallucinations, chest pain, palpitation Review of Systems Review of Systems: All systems reviewed & are unremarkable except as noted in Subjective Physical Exam Physical Exam: General- No acute distress Head- atraumatic Eyes- PERRL, EOMI, ENT- oropharynx clear Neck- supple, no JVD Lungs- clear to auscultation Heart- regular rhythm; no murmur Abdomen- normal bowel sounds, soft, nontender Extremities- no calf tenderness Neuro- alert, oriented x 3; PERRL, EOMI; no facial palsy; no dysarthria Skin- warm & dry Results & Data Results & Data ([facility]) Vital Signs (Past 12 Hours) Vital Signs Temp Pulse Pulse Resp BP Pulse Ox O2 Del Method 11/04/22 11:30 36.6 C 74 20 125/81 94 Room Air 11/04/22 08:00 Room Air 11/04/22 08:01 36.8 C 64 20 142/91 H 93 Room Air 11/04/22 08:00 68 (1) Altered mental state Altered mental status type: unspecified Qualified Code(s): R41.82 - Altered mental status, unspecified
[2022-11-04] MEDS: Patient's ALLERGY Info needs ENTERED SCH ×2 (16:41→17:52)
[2022-11-04] MEDS: ENOXAPARIN INJ 40 MG/0.4 ML SYR SQ SCH (20:02)
[2022-11-04] MEDS: MELATONIN 3 MG TAB PO PRN (23:57)
[2022-11-05] MEDS: ACETAMINOPHEN 325 MG TAB PO PRN ×4 (04:09→19:40)
[2022-11-05] MEDS: LORazepam 1 MG TAB PO PRN ×3 (04:09→19:41)
[2022-11-05] MEDS: Patient's ALLERGY Info needs ENTERED SCH ×6 (08:38→09:10)
[2022-11-05] MEDS: DULoxetine HCL 60 MG CAP PO SCH (08:39)
[2022-11-05] MEDS: PANTOprazole 40 MG TAB PO SCH (08:39)
[2022-11-05] MEDS: hydroCHLOROthiazide 25 MG TAB PO SCH (08:39)
[2022-11-05] MEDS: buPROPion XL 150 MG TABCR PO SCH (08:39)
[2022-11-05] MEDS: GABAPENTIN 400 MG CAP PO SCH ×3 (08:39→19:42)
[2022-11-05] MEDS: amLODIPine BESYLATE 5 MG TAB PO SCH (08:39)
[2022-11-05] MEDS: carvediloL 25 MG TAB PO SCH ×2 (08:39→19:42)
[2022-11-05] MEDS: NICOTINE 14 MG/24 HR PATCH TD SCH (08:40)
[2022-11-05] MEDS: DULoxetine HCL 30 MG CAP PO SCH (08:40)
[2022-11-05] MEDS: FOLIC ACID 1 MG in SYRINGE 9.8 ML IV SCH (08:47)
[2022-11-05] MEDS: THIAMINE HCL 100 MG in SYRINGE 9 ML IV SCH (08:47)
[2022-11-05] MEDS: LIDOCAINE 5% 1 PATCH TD SCH (09:34)
[2022-11-05] MEDS: ONDANSETRON INJ 2 MG/ML 2 ML VIAL IV PRN ×2 (14:39→19:40)
--- NOTE | 2022-11-05 14:49 | Hospitalist Progress Note ---
Date of Service November 05, 2022 Assessment & Plan (1) Alcoholism: (2) Intoxication: Plan: Alcohol level elevated on presentation --measured at 158 Patient reports drinking a Fifth of Vodka a day. Last drink was on Wednesday Urine Drug Screen negative for tested substances (of note, patient with a bottle of clonazepam in his possession which he reports belongs to his room mate and got "mixed up" with his medications) Continue Ativan, Librium for alcohol withdrawal protocol Continue folic acid and thiamine Monitor closely for any sign of alcohol DT Once he is medically stable, he will be discharged to state police custody. Counseling on alcohol cessation PT/OT eval Clinically stable (3) Altered mental state: Plan: Possible Toxic encephalopathy due to alcohol intoxication and polypharmacy He was pulled over by police for erratic driving. 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 No sign of neuro focal deficit on exam Continue monitor (4) Pain: Plan: He is prescribed Tramadol for pain that was discontinued during this admission due to increase risk of seizures Continue Tylenol prn Continue Lidocaine patch (5) Depression: Plan: (6) Mood disorder: Plan: He is prescribed Quetiapine, Duloxetine, bupropion for depression and anxiety. These medications were held on admission due to his depressed mental status. Continue Duloxetine, Bupropion (7) HTN (hypertension): Plan: Continue HCTZ, carvedilol, amlodipine and clonidine Continue monitor BP Plan DVT ppx-- SQ lovenox Admission and Anticipated Discharge Date Admission Date: November 02, 2022 Subjective Pt was seen and examined for follow up of alcohol intoxication Lying in bed with no acute distress Pt said that he feels anxious Denies any hallucinations, chest pain, palpitation, dizziness and SOB Review of Systems Review of Systems: All systems reviewed & are unremarkable except as noted in Subjective Physical Exam 2 Physical Exam: General- No acute distress Head- atraumatic Eyes- PERRL, EOMI, ENT- oropharynx clear Neck- supple, no JVD Lungs- clear to auscultation Heart- regular rhythm; no murmur Abdomen- normal bowel sounds, soft, nontender Extremities- no calf tenderness Neuro- alert, oriented x 3; PERRL, EOMI; no facial palsy; no dysarthria Skin- warm & dry Results & Data Results & Data ([facility]) Vital Signs (Past 12 Hours) Vital Signs Temp Pulse Pulse Pulse Resp BP Pulse Ox 11/05/22 14:32 36.9 C 90 18 133/92 91 11/05/22 10:46 37 C 66 18 135/97 91 11/05/22 09:15 60 11/05/22 07:22 36.6 C 59 L 16 106/75 93 11/05/22 03:00 36.6 C 67 18 111/72 92 O2 Del Method 11/05/22 14:32 Room Air 11/05/22 10:46 Room Air 11/05/22 09:15 11/05/22 07:22 Room Air 11/05/22 03:00 Room Air (1) Altered mental state Altered mental status type: unspecified Qualified Code(s): R41.82 - Altered mental status, unspecified
[2022-11-05] MEDS ORDERED: KETOROLAC TROMETHAMINE 15 MG/ML VIAL IV ONE (16:53)
[2022-11-05] MEDS: cloNIDine HCL 0.1 MG TAB PO PRN (19:40)
[2022-11-05] MEDS: ENOXAPARIN INJ 40 MG/0.4 ML SYR SQ SCH (19:41)
[2022-11-06] MEDS: LORazepam 1 MG TAB PO PRN (00:11)
[2022-11-06] MEDS: MELATONIN 3 MG TAB PO PRN (00:11)
[2022-11-06] MEDS: ACETAMINOPHEN 325 MG TAB PO PRN ×2 (05:03→16:04)
[2022-11-06] MEDS: ONDANSETRON INJ 2 MG/ML 2 ML VIAL IV PRN ×2 (05:04→16:04)
[2022-11-06] MEDS: THIAMINE HCL 100 MG in SYRINGE 9 ML IV SCH (08:34)
[2022-11-06] MEDS: GABAPENTIN 400 MG CAP PO SCH ×2 (08:35→13:48)
[2022-11-06] MEDS: amLODIPine BESYLATE 5 MG TAB PO SCH (08:35)
[2022-11-06] MEDS: buPROPion XL 150 MG TABCR PO SCH (08:36)
[2022-11-06] MEDS: hydroCHLOROthiazide 25 MG TAB PO SCH (08:36)
[2022-11-06] MEDS: PANTOprazole 40 MG TAB PO SCH (08:36)
[2022-11-06] MEDS: DULoxetine HCL 30 MG CAP PO SCH (08:36)
[2022-11-06] MEDS: carvediloL 25 MG TAB PO SCH (08:41)
[2022-11-06] MEDS: DULoxetine HCL 60 MG CAP PO SCH (08:42)
[2022-11-06] MEDS: FOLIC ACID 1 MG in SYRINGE 9.8 ML IV SCH (08:42)
[2022-11-06] MEDS: LIDOCAINE 5% 1 PATCH TD SCH (08:46)
[2022-11-06] MEDS: POLYETHYLENE (MIRALAX) 17 GM PACK PO PRN (08:52)
[2022-11-06] MEDS: NICOTINE 14 MG/24 HR PATCH TD SCH (09:54)
--- NOTE | 2022-11-06 10:59 | XRay Report ---
XR knee RT 1 or 2V routine CLINICAL HISTORY: fall/ right knee pain COMPARISON STUDY: None. FINDINGS: No fracture or dislocation within the right knee. Cartilage spaces are maintained for age. There is a small right knee effusion. IMPRESSION: Small right knee effusion. No fractures. ACT 112: Negative or not required by law. Electronically signed by: Dereck Santoyo M.D. 11/06/2022 10:58 AM
[2022-11-06] MEDS ORDERED: KETOROLAC TROMETHAMINE 15 MG/ML VIAL IV ONE (12:45)
--- NOTE | 2022-11-06 16:45 | Discharge Summary ---
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 He appeared to be intoxicated and was noted to have alcoholic beverages open in the car with him. He failed his field sobriety test and became increasingly less responsive according to police. EMS was contacted and he was brought to the ER. He was given intranasal Narcan in the field without much response. On arrival to the ER he is alert to painful stimuli with verbal response and is maintaining oxygen saturation of 93% on 2 L nasal cannula. He was found to have bottles of Klonopin and Ativan and other peoples names on his car and he suspected to have taken benzodiazepines in addition to alcohol. Alcohol level is elevated. There are no prior records indicate past medical history, however, there were medication bottles in his car with his name on them. These suggest a history of hypertension, depression/anxiety, possibly some element of chronic pain and mood disorder. Admission Exam Per Admitting Provider CONSTITUTIONAL: WNWD, vitals as above, obtunded. Awakens to physical and verbal stimulus. When asked questions he tries to answer but falls asleep frequently. He is oriented to name. EYES: PERRL, normal conjunctivae, no scleral icterus ENT: external ear and nose normal NECK: trachea midline RESPIRATORY: clear to auscultation bilaterally, no crackles, rales or wheezes, normal respiratory effort CARDIOVASCULAR: regular rate and rhythm, S1 and 2 heard without murmurs, gallops or rubs, no JVD, no peripheral edema CHEST: inspection of chest was normal GASTROINTESTINAL: soft, nontender, ND, some guarding present -crouch catheter placed. MUSCULOSKELETAL: strength 5/5 throughout, head is normocephalic and atraumatic SKIN: warm and dry NEUROLOGIC: obtunded, some shivering noted intermittently PSYCHIATRIC: obtunded but can awaken to voice and tell me his correct name. Principal Diagnosis Alcoholism: Intoxication: Altered mental state: Pain: Depression: HTN (hypertension): Discharge Exam General- No acute distress Head- atraumatic Eyes- PERRL, EOMI, ENT- oropharynx clear Neck- supple, no JVD Lungs- clear to auscultation Heart- regular rhythm; no murmur Abdomen- normal bowel sounds, soft, nontender Extremities- no calf tenderness Neuro- alert, oriented x 3; PERRL, EOMI; no facial palsy; no dysarthria Skin- warm & dry Discharge Data Allergies Allergy/AdvReac Type Severity Reaction Status Date / Time diphenhydramine Allergy Agitated Verified 11/04/22 16:39 [From Benadryl] Consultations 11/02/22 17:44 ED Decision to Admit Stat Ordered Studies 11/02/22 16:33 CT head/brain wo con Stat Laboratory Results WBC 7.42 K/ul (4.8-10.8) 11/03/22 04:34 RBC 4.69 M/uL (4.70-6.10) L 11/03/22 04:34 Hgb 13.8 g/dl (14.0-18.0) L 11/03/22 04:34 Hct 41.7 % (42.0-52.0) L 11/03/22 04:34 MCV 88.9 fL (80.0-100.0) 11/03/22 04:34 MCH 29.4 pg (25.0-34.0) 11/03/22 04:34 MCHC 33.1 g/dL (32.0-36.0) 11/03/22 04:34 RDW Std Deviation 45.2 fL (36.4-46.3) 11/03/22 04:34 RDW Coeff of Matheus 14.1 % (11.5-14.5) 11/03/22 04:34 Plt Count 216 K/uL (130-400) 11/03/22 04:34 MPV 8.7 fL (9.4-12.4) L 11/03/22 04:34 Immature Gran % (Auto) 0.3 % 11/02/22 16:40 Neut % (Auto) 51.1 % 11/02/22 16:40 Lymph % (Auto) 33.2 % 11/02/22 16:40 [place] % (Auto) 8.0 % 11/02/22 16:40 Eos % (Auto) 6.0 % 11/02/22 16:40 Baso % (Auto) 1.4 % 11/02/22 16:40 Neut # (Auto) 3.56 K/uL (1.40-6.50) 11/02/22 16:40 Lymph # (Auto) 2.32 K/uL (1.2-3.4) 11/02/22 16:40 [place] # (Auto) 0.56 K/uL (0.11-0.59) 11/02/22 16:40 Eos # (Auto) 0.42 K/uL (0-0.50) 11/02/22 16:40 Baso # (Auto) 0.10 K/uL (0-0.2) 11/02/22 16:40 Immature Gran # (Auto) 0.02 K/uL (0.01-0.20) 11/02/22 16:40 Sodium 137 mmol/L (136-145) 11/04/22 07:49 Potassium 3.6 mmol/L (3.5-5.1) 11/04/22 07:49 Chloride 102 mmol/L (98-107) 11/04/22 07:49 Carbon Dioxide 31 mmol/L (21-32) 11/04/22 07:49 Anion Gap 4 (3-11) 11/04/22 07:49 BUN 9 mg/dl (6-23) 11/04/22 07:49 Creatinine 1.15 mg/dl (0.6-1.4) 11/04/22 07:49 Est Cr Clr Drug Dosing 84.2 ml/min 11/04/22 07:49 Est GFR ( Amer) 84.9 ml/min 11/04/22 07:49 Est GFR (Non-Af Amer) 73.3 ml/min 11/04/22 07:49 BUN/Creatinine Ratio 7.8 (10-20) L 11/04/22 07:49 Glucose 94 mg/dl (70-99(Fasting)) 11/04/22 07:49 Calcium 9.5 mg/dl (8.5-10.1) 11/04/22 07:49 Phosphorus 2.9 mg/dl (2.5-4.9) 11/04/22 07:49 Magnesium 2.1 mg/dl (1.7-2.4) 11/04/22 07:49 Total Bilirubin 0.3 mg/dl (0.2-1.0) 11/02/22 16:40 AST 20 U/L (13-39) 11/02/22 16:40 ALT 24 U/L (7-52) 11/02/22 16:40 Alkaline Phosphatase 88 U/L (34-104) 11/02/22 16:40 Total Protein 7.5 gm/dl (6.0-8.3) 11/02/22 16:40 Albumin 4.3 gm/dl (3.4-5.0) 11/02/22 16:40 Globulin 3.2 gm/dl (2.5-4.0) 11/02/22 16:40 Albumin/Globulin Ratio 1.3 (0.9-2) 11/02/22 16:40 TSH 1.627 uIu/ml (0.300-4.500) 11/02/22 16:40 Urine Color Yellow 11/02/22 17:23 Urine Appearance Clear (Clear) 11/02/22 17:23 Urine pH 7.5 (4.5-7.5) 11/02/22 17:23 Ur Specific [place] 1.005 (1.000-1.030) 11/02/22 17:23 Urine Protein Negative (Negative) 11/02/22 17:23 Urine Glucose (UA) Negative (Negative) 11/02/22 17:23 Urine Ketones Negative (Negative) 11/02/22 17:23 Urine Blood Negative (Negative) 11/02/22 17:23 Urine Nitrite Negative (Negative) 11/02/22 17:23 Urine Bilirubin Negative (Negative) 11/02/22 17:23 Urine Urobilinogen Negative (Negative) 11/02/22 17:23 Ur Leukocyte Esterase Negative (Negative) 11/02/22 17:23 Salicylates < 3.0 mg/dl (3.0-30) L 11/02/22 16:40 Urine Opiates Screen Neg (Neg) 11/02/22 17:23 Ur Methadone, Qual Neg (Neg) 11/02/22 17:23 Acetaminophen < 3 ug/ml (10-30) L 11/02/22 16:40 Urine Barbiturates Neg (Neg) 11/02/22 17:23 Ur Phencyclidine (PCP) Neg (Neg) 11/02/22 17:23 U Amphetamin/Meth Scrn Neg (Neg) 11/02/22 17:23 MDMA (Ecstasy) Screen Neg (Neg) 11/02/22 17:23 U Benzodiazepines Scrn Neg (Neg) 11/02/22 17:23 Ur Cocaine Metabolite Neg (Neg) 11/02/22 17:23 U Marijuana (THC) Screen Neg (Neg) 11/02/22 17:23 Ethyl Alcohol mg/dL 158.6 mg/dl (<10.0) H 11/02/22 16:40 SARS-CoV-2 (PCR) NEGATIVE (Negative) 11/03/22 17:00 Influenza Type A (PCR) Negative (Neg) 11/02/22 22:29 Influenza Type B (PCR) Negative (Neg) 11/02/22 22:29 RSV (RT-PCR) Negative (Neg) 11/02/22 22:29 SARS-CoV-2, RNA, NAAT NEGATIVE (NEGATIVE) 11/02/22 17:[address] 11/02/22 16:33 CT SCAN OF THE BRAIN WITHOUT IV CONTRAST CLINICAL HISTORY: Change in mental status. COMPARISON STUDY: No priors. TECHNIQUE: Unenhanced axial CT scan of the brain is performed from the vertex to the skull base. A dose lowering technique was utilized adhering to the principles of ALARA. CT DOSE: 691.05 mGy.cm FINDINGS: Brain parenchyma: There is a 12 mm low attenuation focus in the left internal capsule seen on image #18. There is age-related involutional change noting mild subcortical and periventricular microangiopathic disease. There is no hemorrhage, mass effect, or evidence of acute territorial ischemia by CT criteria. Jones-white matter differentiation is preserved. No extra-axial fluid collection is seen. Ventricles, sulci, cisterns: Prominent secondary to involutional change. Intracranial vasculature: There is atherosclerotic calcification of the cavernous carotid arteries. Calvarium: Unremarkable. Sinuses and mastoids: There is mild/moderate mucosal thickening within the maxillary antra and the ethmoid sinuses. Mild mucosal thickening is noted in the frontal sinuses. The mastoid air cells are well pneumatized. Orbits: The bony orbits are grossly intact. IMPRESSION: 1 There is no hemorrhage, mass effect, or evidence of acute territorial ischemia by CT criteria. 2. There is a 12 mm low-attenuation focus centered in the left internal capsule. This could represent chronic change versus a subacute lacunar infarct. MRI could be considered for further assessment. ACT 112: Negative or not required by law. Electronically signed by: Ranjit Asif M.D. 11/02/2022 5:10 PM Chest X-Ray 11/02/22 16:34 SUPINE PORTABLE AP CHEST RADIOGRAPH CLINICAL HISTORY: Altered mental status. COMPARISON STUDY: No previous studies for comparison. FINDINGS: Mediastinal widening is likely due to supine technique. Low lung volumes are also likely related to supine technique. Linear left basilar opacity represents atelectasis. No consolidation is present. There is no evidence for pulmonary edema. Cardiac size is within normal limits. No pneumothorax is identified on supine exam. IMPRESSION: 1. No acute cardiopulmonary findings. 2. Mediastinal widening, likely due to supine technique. ACT 112: Negative or not required by law. Electronically signed by: Jimenez Solorzano M.D. 11/02/2022 5:25 PM Knee X-Ray 11/06/22 10:24 XR knee RT 1 or 2V routine CLINICAL HISTORY: fall/ right knee pain COMPARISON STUDY: None. FINDINGS: No fracture or dislocation within the right knee. Cartilage spaces are maintained for age. There is a small right knee effusion. IMPRESSION: Small right knee effusion. No fractures. ACT 112: Negative or not required by law. Electronically signed by: Dereck Santoyo M.D. 11/06/2022 10:58 AM Hospital Course (1) Alcoholism: (2) Intoxication: Alcohol level elevated on presentation --measured at 158 Patient reports drinking a Fifth of Vodka a day. Last drink was on Wednesday Urine Drug Screen negative for tested substances (of note, patient with a bottle of clonazepam in his possession which he reports belongs to his room mate and got "mixed up" with his medications) Continue Ativan, Librium for alcohol withdrawal protocol Continue folic acid and thiamine Monitor closely for any sign of alcohol DT Once he is medically stable, he will be discharged to state police custody. Counseling on alcohol cessation and driving under the influence Completed the form to report him to [facility] PT/OT eval Clinically stable (3) Altered mental state: Possible Toxic encephalopathy due to alcohol intoxication and polypharmacy He was pulled over by police for erratic driving. Became less responsive and confused during interaction with copy technician CT head showed 12 mm low-attenuation focus centered in the left internal capsule. No sign of neuro focal deficit on exam Continue monitor (4) Pain: He is prescribed Tramadol for pain that was discontinued during this admission due to increase risk of seizures Continue Tylenol prn Continue Lidocaine patch (5) Depression: (6) Mood disorder: He is prescribed Quetiapine, Duloxetine, bupropion for depression and anxiety. These medications were held on admission due to his depressed mental status. Continue Duloxetine, Bupropion (7) HTN (hypertension): Continue HCTZ, carvedilol, amlodipine and clonidine Continue monitor BP Plan DVT ppx-- SQ lovenox Total Time Total Time Spent Total Time Spent (In Minutes): 35 minutes Discharge Plan Discharge Items Patient Disposition: [facility] Reason For Visit: INTOXICATION WHILE DRIVING Discharge Diagnosis: Alcoholism: Intoxication: Altered mental state: Pain: Depression: HTN (hypertension): Activity: Resume your previous activity Non-emergency contact: Primary Care Provider Call non-emergency contact if: you have any medication questions Follow-up/Referrals: Brittany Estrada DO [Primary Care Provider] - Diet: Heart Healthy Addtl Attending Provider Instructions: Follow up with your primary care provider ( please call to schedule for the appointment) Counseling on alcohol cessation Consider inpatient alcohol rehab therapy Fall precaution Seek medical attention if you develop any symptom of alcohol withdrawal Pending Studies at Discharge: No Stand-Alone Forms: My New [facility] Skilled Items Patient informed of condition?: Yes Discharge Level of Care: Other Communicable Disease: No Discharge Prognosis: Stable Lines: None Urinary Catheter: No Medications and DC Order Prescriptions: New thiamine HCl (vitamin B1) 100 mg Tablet 100 mg PO DAILY 30 Days Qty: 30 0RF folic acid 1 mg Tablet 1 mg PO DAILY 30 Days Qty: 30 0RF acetaminophen 325 mg Tablet 650 mg PO Q6H PRN (Reason: pain) Qty: 30 0RF Continued amlodipine 10 mg Tablet 10 mg PO DAILY bupropion HCl 150 mg Tablet Extended Release 24 Hr 150 mg PO QAM duloxetine 30 mg Capsule,Delayed Release(Dr/Ec) 30 mg PO DAILY duloxetine 60 mg Capsule,Delayed Release(Dr/Ec) 60 mg PO DAILY gabapentin 400 mg Capsule 400 mg PO TID pantoprazole 40 mg Tablet,Delayed Release (Dr/Ec) 40 mg PO QAM hydrochlorothiazide 25 mg Tablet 25 mg PO DAILY carvedilol 25 mg Tablet 25 mg PO BID Rx Instructions: must administer with a meal/food clonidine HCl 0.1 mg Tablet 0.1 mg PO TID PRN (Reason: BP > 140/90) quetiapine 100 mg Tablet 100 mg PO TID PRN (Reason: as directed) acamprosate 333 mg Tablet,Delayed Release (Dr/Ec) 666 mg PO TID Rx Instructions: 2 tablet dose naltrexone 50 mg Tablet 50 mg PO DAILY PRN (Reason: breakthrough craving) nicotine 14 mg/24 hr Patch 24 Hour 1 patch TRANSDERMAL DAILY Discontinued tramadol 50 mg Tablet 50 mg PO Q8H PRN (Reason: Pain) Discharge Orders: Discharge Order (Routine); Ordered 11/06/22 Ordered By: Rebel Hernández Admission Data Admit Date/Time: 11/02/22 17:58 Attending Provider: Rebel Hernández Admit Provider: Renee Carney Primary Care Provider: Brittany Estrada Other Interventions: Discharge Summary Assessment (RN) Last Done: 11/06/22 15:59
[2022-11-07] MEDS ORDERED: FOLIC ACID 1 MG TAB PO SCH (09:00)
[2022-11-07] MEDS ORDERED: THIAMINE HCL 100 MG TAB PO SCH (09:00)
== END 2022-11-06 16:35 | DRG 896 ==
LOC: ED 16:27 → SUATTDRO 17:58 → EDINP 17:58 → 2N 11-03 16:00